=== PATIENT | female | born 1985 | race Caucasian/White ===

== ENCOUNTER → 2017-02-05 09:45 | Outpatient (CLI) | payer MEDICAID | END | disposition home or self-care (01) | LOC: D.CT 09:45 | DX: I67.1 Cerebral aneurysm, nonruptured (principal) ==

== ENCOUNTER 2017-06-05 05:18 | Emergency (ER) | payer MEDICAID ==
[2017-06-05 06:28] LABS: BASOPHILS 0.2 % (0-2); EOSINOPHILS 1.5 % (0-7); HEMATOCRIT 36.5 % (36.0-48.0); IMMATURE GRANULOCYTES 0.5 % (0-5); LYMPHOCYTES 28.4 % (15-50); MCH 28.6 pg (26.0-34.0); MCHC 32.9 g/dL (31.0-37.0); MCV 87.1 fL (80.0-100.0); MEAN PLATELET VOLUME 8.9 fL (7.4-10.4); MONOCYTES 7.9 % (2-11); NEUTROPHILS 61.5 % (40-80); PLATELET COUNT 228 10x3/uL (130-400); RBC 4.19 10x6/uL (4.00-5.40); RDW 12.6 % (11.5-14.5); WBC 9.3 10x3/uL (4.8-10.8)
[2017-06-05 06:46] LABS: ALBUMIN 3.3 g/dL (3.4-5.0); ALKALINE PHOSPHATASE 103 U/L (46-116); ALT (SGPT) 61 U/L (10-68); CALC OSMOLALITY 278 mosm/kg (275-300); CALCIUM 8.8 mg/dL (8.5-10.1); CARBON DIOXIDE 28.9 mmol/L (21.0-32.0); CHLORIDE - SERUM 103 mmol/L (98-107); CREATININE - SERUM 0.8 mg/dL (0.6-1.3); GLUCOSE 109 mg/dL (74-106); POTASSIUM - SERUM 4.2 mmol/L (3.5-5.1); PROTEIN - SERUM 7.4 g/dL (6.4-8.2); SODIUM 139 mmol/L (136-145); UREA NITROGEN 12 mg/dL (7-18); eGFR NON AFRICAN AMERICAN 88 mL/min (90-120)
[2017-06-05 06:58] LABS: CHOL - HDL RATIO 6.6 ratio (2.3-4.1); CHOLESTEROL, TOTAL 210 mg/dL (0-200); CKMB 0.7 U/L (0.0-3.6); CREATINE KINASE 170 UL (21-215); HDL CHOLESTEROL 32 mg/dL (32-96); LDL CHOLESTEROL 135 mg/dL (0-100); LDL-HDL RATIO 4.2 ratio (1.5-3.5); TRIGLYCERIDE 215 mg/dL (30-200); TROPONIN-I < 0.017 ng/mL (0.000-0.060)
== END 2017-06-05 07:10 | disposition home or self-care (01) ==
LOC: D.ER 05:18
PROVIDERS: Family Medicine
DX: R07.89 Other chest pain (principal); R05 Cough; R94.31 Abnormal electrocardiogram [ECG] [EKG]

== ENCOUNTER 2017-12-06 18:27 | Emergency (ER) | payer MEDICAID | END 2017-12-06 20:12 | disposition home or self-care (01) | LOC: D.ER 18:27 | DX: J20.9 Acute bronchitis, unspecified (principal) ==

== ENCOUNTER 2018-05-22 20:28 | Emergency (ER) | payer MEDICAID ==
[~2018-05-22] VITALS: Ht 172.7 cm; Wt 118.2 kg
[2018-05-22 20:52] VITALS: Ht 172.7 cm; Wt 118.2 kg
[2018-05-22] MEDS ORDERED: VOLTAREN75 MG PO (23:16)
[2018-05-22 23:54] VITALS: BP 140/72
== END 2018-05-22 23:55 | disposition home or self-care (01) ==
LOC: D.ER 20:28
DX: M25.532 Pain in left wrist (principal); M25.531 Pain in right wrist; E28.2 Polycystic ovarian syndrome

== ENCOUNTER 2018-12-31 14:48 | Emergency (ER) | payer OTHER ==
[~2018-12-31] VITALS: Ht 170.2 cm; Wt 161.4 kg
[~2018-12-31 14:48] MED LIST: VOLTAREN75 MG PO
[2018-12-31 14:55] VITALS: Ht 170.2 cm; Wt 161.4 kg
[2018-12-31] MEDS ORDERED: ALBUTEROL SULF8.5 GM INH (19:25)
[2018-12-31] MEDS ORDERED: VIBRAMYCIN 100100 MG PO (19:25)
[2018-12-31 22:10] VITALS: BP 135/83
== END 2018-12-31 22:10 | disposition home or self-care (01) ==
LOC: D.ER 14:48
DX: S39.012A Strain of muscle, fascia and tendon of lower back, initial encounter (principal); X58.XXXA Exposure to other specified factors, initial encounter; Y93.89 Activity, other specified; Y92.89 Other specified places as the place of occurrence of the external cause; R03.0 Elevated blood-pressure reading, without diagnosis of hypertension

== ENCOUNTER 2019-01-06 22:01 | Emergency (ER) | payer OTHER ==
[~2019-01-06] VITALS: Ht 170.2 cm; Wt 162.3 kg
[~2019-01-06 22:01] MED LIST changes: +ALBUTEROL SULF8.5 GM INH; +VIBRAMYCIN 100100 MG PO
[2019-01-06 22:07] VITALS: Ht 170.2 cm; Wt 162.3 kg
[2019-01-06] MEDS ORDERED: NAPROSYN500 MG PO (22:55)
[2019-01-07 00:10] VITALS: BP 150/89
== END 2019-01-07 00:12 | disposition home or self-care (01) ==
LOC: D.ER 22:01
DX: S39.012A Strain of muscle, fascia and tendon of lower back, initial encounter (principal); X58.XXXA Exposure to other specified factors, initial encounter; Y93.89 Activity, other specified; Y92.89 Other specified places as the place of occurrence of the external cause; R03.0 Elevated blood-pressure reading, without diagnosis of hypertension

== ENCOUNTER 2019-04-15 23:02 | Emergency (ER) | payer SELFPAY ==
[~2019-04-15 23:02] MED LIST changes: +NAPROSYN500 MG PO
[2019-04-15 23:07] VITALS: BMI 54.1
[2019-04-16 00:12] LABS: BASOPHILS 0.2 % (0-2); EOSINOPHILS 0.5 % (0-7); HEMATOCRIT 35.8 % (36.0-48.0); HEMOGLOBIN 11.8 g/dL (12-16); IMMATURE GRANULOCYTES 0.4 % (0-5); LYMPHOCYTES 7.7 % (15-50); MCH 28.2 pg (26.0-34.0); MCV 85.6 fL (80.0-100.0); MONOCYTES 5.8 % (2-11); NEUTROPHILS 85.4 % (40-80); PLATELET COUNT 208 10x3/uL (130-400); RBC 4.18 10x6/uL (4.00-5.40); RDW 12.8 % (11.5-14.5)
[2019-04-16 00:27] LABS: ALBUMIN 3.4 g/dL (3.4-5.0); ALKALINE PHOSPHATASE 109 U/L (46-116); ALT (SGPT) 72 U/L (10-68); BILIRUBIN - TOTAL 0.47 mg/dL (0.2-1.3); CALC OSMOLALITY 280 mosm/kg (275-300); CARBON DIOXIDE 25.4 mmol/L (21.0-32.0); CHLORIDE - SERUM 104 mmol/L (98-107); CREATININE - SERUM 0.8 mg/dL (0.6-1.3); GLUCOSE 153 mg/dL (74-106); LIPASE 66 U/L (73-393); PROTEIN - SERUM 7.6 g/dL (6.4-8.2); SODIUM 140 mmol/L (136-145); UREA NITROGEN 10 mg/dL (7-18); eGFR NON AFRICAN AMERICAN 87 mL/min (90-120)
[2019-04-16 00:56] LABS: APPEARANCE CLEAR (CLEAR); BILIRUBIN NEGATIVE (NEGATIVE); COLOR YELLOW (YELLOW); GLUCOSE NEGATIVE (NEGATIVE); KETONE NEGATIVE (NEGATIVE); NITRITE NEGATIVE (NEGATIVE); PROTEIN NEGATIVE (NEGATIVE); UROBILINOGEN NORMAL (NORMAL)
[2019-04-16] MEDS ORDERED: CIPRO500 MG PO (02:16)
[2019-04-16] MEDS ORDERED: FLAGYL500 MG PO (02:16)
[2019-04-16] MEDS ORDERED: PHENERGAN25 M1 PO (02:16)
[2019-04-16 03:58] VITALS: BP 126/75
== END 2019-04-16 03:58 | disposition home or self-care (01) ==
LOC: D.ER 23:02
PROVIDERS: Emergency Medicine
DX: K52.9 Noninfective gastroenteritis and colitis, unspecified (principal)

== ENCOUNTER 2020-05-22 21:59 | Emergency (ER) | payer SELFPAY ==
[~2020-05-22] VITALS: Ht 170.2 cm; Wt 163.6 kg
[~2020-05-22 21:59] MED LIST changes: +CIPRO500 MG PO; +FLAGYL500 MG PO; +PHENERGAN25 M1 PO
[2020-05-22 22:05] VITALS: Ht 170.2 cm; Wt 163.6 kg
[2020-05-22] MEDS ORDERED: PREDNISONE20 MG PO (22:48)
[2020-05-22 23:45] VITALS: BP 154/65
== END 2020-05-22 23:45 | disposition home or self-care (01) ==
LOC: D.ER 21:59
DX: J20.9 Acute bronchitis, unspecified (principal); J45.909 Unspecified asthma, uncomplicated; R06.02 Shortness of breath; R05 Cough

== ENCOUNTER 2020-07-12 21:04 | Emergency (ER) | payer SELFPAY ==
[~2020-07-12] VITALS: Ht 170.2 cm; Wt 162.7 kg
[~2020-07-12 21:04] MED LIST changes: +PREDNISONE20 MG PO
[2020-07-12 21:19] VITALS: Ht 170.2 cm; Wt 162.7 kg
[2020-07-12] MEDS ORDERED: CLEOCIN HCL300 MG PO (22:12)
== END 2020-07-12 22:38 | disposition home or self-care (01) ==
LOC: D.ER 21:04
DX: N76.4 Abscess of vulva (principal); J45.909 Unspecified asthma, uncomplicated

== ENCOUNTER 2021-03-01 01:54 | Emergency (ER) | payer BC ==
[~2021-03-01] VITALS: Ht 170.2 cm; Wt 145.9 kg
[~2021-03-01 01:54] MED LIST changes: +CLEOCIN HCL300 MG PO; +DICLOFENAC SODI50 MG PO; +DIFLUCAN150 MG PO; +LOTRIMIN AF90 GM TOPICAL; +METHOCARBAMOL500 MG PO; +OMNICEF300 MG PO; +PEPCID40 MG PO; +TORADOL10 MG PO
[2021-03-01 01:58] VITALS: Ht 170.2 cm; Wt 145.9 kg
[2021-03-01] MEDS ORDERED: PROAIR HFA8.5 G1 INH (03:26)
[2021-03-01 03:57] VITALS: BP 134/77
== END 2021-03-01 03:52 | disposition home or self-care (01) ==
LOC: D.ER 01:54
DX: R06.00 Dyspnea, unspecified (principal); F41.9 Anxiety disorder, unspecified; J45.909 Unspecified asthma, uncomplicated

== ENCOUNTER 2021-04-27 19:13 | Emergency (ER) | payer BC ==
[~2021-04-27] VITALS: Ht 170.2 cm; Wt 140.5 kg
[~2021-04-27 19:13] MED LIST changes: +PROAIR HFA8.5 G1 INH
[2021-04-27 19:39] VITALS: Ht 170.2 cm; Wt 140.5 kg
[2021-04-27] MEDS ORDERED: CEPHALEXIN500 M1 PO (20:34)
[2021-04-27] MEDS ORDERED: CLEOCIN HCL300 MG PO (20:34)
[2021-04-27 21:22] VITALS: BP 120/81
== END 2021-04-27 20:52 | disposition home or self-care (01) ==
LOC: D.ER 19:13
DX: L03.116 Cellulitis of left lower limb (principal); M79.672 Pain in left foot; E11.9 Type 2 diabetes mellitus without complications; I10 Essential (primary) hypertension